=== PATIENT | female | born 1965 | race Two or more races ===

== ENCOUNTER 2019-02-18 15:01 | Outpatient (CLI) | payer OTHER ==
[~2019-02-18 15:01] MED LIST: ACET-1600 PO; NORG1TAB6 PO; PNV51CAP2 PO
[2019-02-18] MEDS ORDERED: ESTR42.58 VG (15:25)
[2019-02-18] MEDS ORDERED: ASPI-691 PO (15:25)
[2019-02-18] MEDS ORDERED: NAPR-685 PO (15:25)
[2019-02-18] MEDS ORDERED: MULT-124 PO (15:25)
== END 2019-02-18 23:59 | disposition home or self-care (01) ==
LOC: STAR 15:01
PROVIDERS: ATTEND Obstetrics & Gynecology Female Pelvic Medicine and Reconstructive Surgery
DX: Z02.9 Encounter for administrative examinations, unspecified (principal)

== ENCOUNTER 2019-03-11 05:54 | Day surgery (SDC) | payer OTHER ==
[~2019-03-11] VITALS: Ht 165.1 cm; Wt 73.0 kg
[~2019-03-11 05:54] MED LIST changes: +ASPI-691 PO; +ESTR42.58 VG; +MULT-124 PO; +NAPR-685 PO
[2019-03-11] MEDS ORDERED: LIDOCAINE-MPF 1%, 2ML ONE (06:44)
[2019-03-11] MEDS ORDERED: LACTATED RINGERS 1,000 ML IV SCH ×2 (06:53→10:13)
[2019-03-11 06:58] VITALS: BP 138/84
[2019-03-11] MEDS ORDERED: ACETAMINOPHEN 500 MG TABLET PO ONE (07:00)
[2019-03-11] MEDS ORDERED: GABAPENTIN 300 MG CAPSULE PO ONE (07:00)
[2019-03-11] MEDS ORDERED: LIDOCAINE-MPF 1%, 2ML INFIL ONE (07:00)
[2019-03-11] MEDS ORDERED: FAMOTIDINE 20 MG TABLET PO ONE (07:00)
[2019-03-11] MEDS ORDERED: EPINEPHRINE 1 MG/ML, 1ML ONE (07:03)
[2019-03-11] MEDS ORDERED: ACETAMINOPHEN 500 MG TABLET ONE (07:03)
[2019-03-11] MEDS ORDERED: INDIGO CARMINE 0.8%, 5ML ONE (07:03)
[2019-03-11] MEDS ORDERED: THROMBIN 5,000 UNIT VIAL TP ONE (07:03)
[2019-03-11] MEDS ORDERED: GABAPENTIN 300 MG CAPSULE ONE (07:03)
[2019-03-11] MEDS ORDERED: BUPIVACAINE/PF 0.25% ONE ×2 (07:03→09:07)
[2019-03-11] MEDS ORDERED: FAMOTIDINE 20 MG TABLET ONE (07:03)
[2019-03-11] MEDS ORDERED: MIDAZOLAM 1 MG/ML, 2ML ONE (07:04)
[2019-03-11] MEDS ORDERED: CEFAZOLIN 1,000 MG ONE (07:05)
[2019-03-11] MEDS ORDERED: FENTANYL PF 250 MCG/5ML ONE (07:05)
[2019-03-11] MEDS ORDERED: DEXAMETHASONE 4 MG/ML, 1ML ONE (07:05)
[2019-03-11] MEDS ORDERED: ROCURONIUM 10MG/ML,5ML ONE (07:05)
[2019-03-11] MEDS ORDERED: ONDANSETRON 2MG/ML, 2ML IV PRN (07:30)
[2019-03-11] MEDS ORDERED: OXYcodone 5 MG/5 ML ORAL.SOL UDC PO PRN (07:30)
[2019-03-11] MEDS ORDERED: PROMETHAZINE 25 MG/ML, 1ML IV PRN (07:30)
[2019-03-11] MEDS ORDERED: hydrALAzine 20 MG/ML, 1ML IV PRN (07:30)
[2019-03-11] MEDS ORDERED: HYDROmorphone 2 MG/ML, 1ML IVPush PRN (07:30)
[2019-03-11] MEDS ORDERED: FENTANYL PF 100 MCG/2ML IV PRN (07:30)
[2019-03-11] MEDS ORDERED: LABETALOL 5MG/ML, 20ML IV PRN (07:30)
[2019-03-11] MEDS ORDERED: MEPERIDINE/PF 25MG/ML,1ML IVPush PRN (07:30)
[2019-03-11] MEDS ORDERED: NEOMY/POLYMYXIN B GU IRR. 1 ML ONE (08:52)
[2019-03-11] MEDS ORDERED: ONDANSETRON 2MG/ML, 2ML ONE (09:08)
[2019-03-11] MEDS ORDERED: PROPOFOL 10 MG/ML, 20ML ONE (09:08)
[2019-03-11] MEDS ORDERED: IBUPROFEN 600 MG TABLET PO PRN (10:30)
[2019-03-11] MEDS ORDERED: HYDROcodone/APAP 5/325 TABLET PO PRN (10:30)
[2019-03-11] MEDS ORDERED: ONDANSETRON 2MG/ML, 2ML IVPush PRN (10:30)
[2019-03-11] MEDS ORDERED: PROMETHAZINE 25 MG SUPP PR ONE (10:30)
== END 2019-03-11 14:15 | disposition home or self-care (01) ==
LOC: OUT 05:54
PROVIDERS: ATTEND Obstetrics & Gynecology Female Pelvic Medicine and Reconstructive Surgery
DX: N99.3 Prolapse of vaginal vault after hysterectomy (principal); N39.3 Stress incontinence (female) (male); N73.6 Female pelvic peritoneal adhesions (postinfective); G43.909 Migraine, unspecified, not intractable, without status migrainosus; Z79.899 Other long term (current) drug therapy; Z90.710 Acquired absence of both cervix and uterus; Z90.79 Acquired absence of other genital organ(s)
CPT/HCPCS: 57288; 57425; C1771; C1781; J0171; J0690; J1100; J2250; J2405; J2704; J3010; J3490; J7120; S2900